=== PATIENT | female | born 1990 | race Caucasian/White ===

== ENCOUNTER 2025-06-24 08:16 | Inpatient (IN) ==
[2025-06-24] MEDS ORDERED: LIDOCAINE 1% LOCAL 20 ML VIAL INFIL PRN (08:21)
--- NOTE | 2025-06-24 08:52 | History & Physical Report ---
Date of Service June 24, 2025 Assessment & Plan (1) Insulin controlled gestational diabetes mellitus (GDM) during : (2) with 39 completed weeks gestation: Plan admit. pit iol. arom when indicated. epidural on demand, check sugars hourly with goal of 80-120, fetus category one, anticipate . 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 Notes good fm. no lof/vb/contractions. and Delivery Plans new fob - Fob's brother Transposition of Great Vessels - echo -24 wks-[facility]-03/30/25- WNL JBS Cervical polyp GDM on insulin *Wkly NSTs @32wks and Twice wkly @36wks *Growth US Q 4wks @ 24wks *Deliver by [facility]C 06/24/25 LGA --> Induction scheduled for 06/24- call at 6am (per L&D) 06/10 us efw 92%, AC >98% OB Labs: Blood Type B Positive 11/25/24 Antibody Screen NEGATIVE 11/25/24 Hgb 12.3 g/dl (12.0-16.0) 04/15/25 Hct 36.4 % (37.0-47.0) L 04/15/25 MCV 87.5 fL (80.0-100.0) 11/25/24 Plt Count 331 K/uL (130-400) 11/25/24 Rubella IgG Antibody Immune (Immune) 11/25/24 Treponema pallidum Ab Negative (Negative) 04/15/25 Hep Bs Antigen Negative (Negative) 11/25/24 Hepatitis C Antibody Negative (Negative) 11/25/24 HIV 1&2 Ab/P24 Ag 4thGn Negative (Negative) 11/25/24 Glucose 1 Hr 50 gm 200 mg/dl (70-130) H 01/22/25 OB Optional Labs: Chlamydia trachomatis RNA Not Detected (NotDetected) 11/25/24 Neisseria gonorrhoeae RNA Not Detected (NotDetected) 11/25/24 Thyroid Stimulating Hormone (TSH) 2.175 uIu/ml (0.300-4.500) 08/14/23 Labs Reviewed: declines cfdna, cf/sma - sln gbs neg Allergies Allergy/AdvReac Type Severity Reaction Status Date / Time Sulfa (Sulfonamide Allergy Severe eye drops Verified 06/23/25 09:23 Antibiotics) -> eye redness, painful, irritation Home Medications Medication Instructions Recorded Confirmed Type fluoxetine 40 mg capsule 40 mg PO DAILY #90 caps 05/27/24 06/23/25 Rx 21-iron fu-folic acid PO 11/23/24 06/23/25 History [ Complete] ofloxacin 0.3 % eye drops See Rx Instructions ophthalmic 01/08/25 06/23/25 Rx (eye) .COMPLEX #10 mL acetone (urine) test (Ketone Urine #50 ea 02/03/25 06/23/25 Rx Test strips) blood sugar diagnostic (OneTouch #150 ea 02/03/25 06/23/25 Rx Verio test strips) blood-glucose meter (OneTouch #1 ea 02/03/25 06/23/25 Rx Verio Flex Meter) lancets 33 gauge (OneTouch Delica #150 ea 02/03/25 06/23/25 Rx Plus Lancet) insulin NPH isoph U-100 human 100 10 unit (0.1 mL) subcut .at 03/19/25 06/23/25 Rx unit/mL (3 mL) subcutaneous pen bedtime #15 mL (Novolin N FlexPen) pen needle, diabetic 32 gauge x #100 ea 03/19/25 06/23/25 Rx 5/" Patient History Medical History Cervical polyp History of chicken pox ADD (attention deficit disorder) Chronic sinusitis Allergic rhinitis Anxiety Surgical History H/O sinus surgery x2 Family History Grandmother (Maternal) Breast cancer Other No family history of adverse response to anesthesia Denies family history of Ovarian cancer Colorectal cancer Social History Smoking Status: Never smoker Second Hand Exposure: No; Do You Dip or Chew Tobacco: No; Hx Alcohol Use: No Hx Substance Use: No Preferred Language: Belarusian Communication Ability: Effective Securities Underwriter Required: No Beliefs That Will Affect Care: None marital status: marital status details: Jeovany Barnard [phone] Current Living Situation: Spouse and Family Current Living Situation Comment: lives with spouse, daughter, dogs, cats- spouse changing litter current occupational status: employed 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 Date GA wks Lbr Lgth wt Sex Type del Anes Place Del Prov ? 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
[2025-06-24 09:34] LABS: Hematocrit (blood only) 37.3 % (37.0-47.0); Hemoglobin 12.7 g/dl (12.0-16.0); Mean Corpuscular Hemoglobin 30.5 pg (25.0-34.0); Mean Corpuscular Volume 89.7 fL (80.0-100.0); Platelet Count 212 K/uL (130-400); RDW Standard Deviation 44.0 fL (36.4-46.3); Red Blood Count 4.16 M/uL (4.20-5.40); White Blood Count 11.83 K/ul (4.8-10.8)
[2025-06-24] MEDS: LACTATED RINGER'S 1,000 ML IV PRN (09:51)
[2025-06-24] MEDS: OXYTOCIN 30 UNITS/NSS 30 UNITS/500 ML BAG IV PRN ×2 (09:52→17:38)
[2025-06-24] MEDS ORDERED: SODIUM CHLORIDE 0.9% 100 ML IV PRN (11:25)
--- NOTE | 2025-06-24 13:07 | Labor Progress Brief Note ---
Date of Service June 24, 2025 Subjective noting contractions. not ready for epidural Assessment & Plan (1) with 39 completed weeks gestation: (2) Insulin controlled gestational diabetes mellitus (GDM) during : Plan continue current management. fetus category one. epidural on demand. bs good Admission and Anticipated Discharge Date Admission Date: June 24, 2025 Physical Exam Physical Exam: cx--3.5/75/-2 toco--q2-3 ,min efm--130s with mod variability, accels ot 170s, no decels arom--clear Results & Data Vital Signs (Past 12 Hours) Vital Signs Temp Pulse Resp BP 06/24/25 13:01 80 06/24/25 13:01 117/61 06/24/25 12:06 79 06/24/25 12:06 109/61 06/24/25 10:37 77 06/24/25 10:37 36.5 C 18 112/64 06/24/25 08:35 36.7 C 18 06/24/25 08:33 36.7 C 109 H 18 123/72 Coding Level of Care Code None Diagnoses with 39 completed weeks gestation Z3A.39 Insulin controlled gestational diabetes mellitus (GDM) during O24.414
[2025-06-24] MEDS ORDERED: NALOXONE HCL 0.4 MG/1 ML VIAL/CARP IV PRN (14:37)
[2025-06-24] MEDS ORDERED: NALBUPHINE HCL INJ 10 MG/ML AMP IV PRN (14:37)
[2025-06-24] MEDS ORDERED: ONDANSETRON INJ 2 MG/ML 2 ML VIAL IV PRN (14:37)
[2025-06-24] MEDS ORDERED: BUPIVACAINE 0.25% PF 30 ML VIAL EPI PRN (14:37)
[2025-06-24] MEDS ORDERED: fentANYL 2 MCG/ML BUPIVacaine 0.125%-NSS 100ML BAG EPI PRN (14:37)
[2025-06-24] MEDS ORDERED: SODIUM CHLORIDE 0.9% PF INJ 10 ML VIAL EPI PRN (14:37)
[2025-06-24] MEDS ORDERED: LIDOCAINE 2% MPF LOCAL 5 ML VIAL EPI PRN (14:37)
[2025-06-24] MEDS ORDERED: ATROPINE SULFATE 0.1 MG/ML 10ML SYR IV PRN (14:37)
[2025-06-24] MEDS ORDERED: ROPIVACAINE 0.5% PF 5 MG/ML 20 ML VIAL EPI PRN (14:37)
[2025-06-24] MEDS ORDERED: NALOXONE HCL 1 MG in SODIUM CHLORIDE 0.9% 1,000 ML IV PRN (14:37)
[2025-06-24] MEDS ORDERED: LIDOCAINE 2%/EPINEPHRINE 1:200,000 20 ML PF EPI STA (14:37)
[2025-06-24] MEDS ORDERED: diphenhydrAMINE 50 MG/ML VIAL IV PRN (14:37)
[2025-06-24] MEDS ORDERED: BUPIVACAINE 0.25% PF 30 ML VIAL EPI STA (14:37)
[2025-06-24] MEDS ORDERED: SODIUM CHLORIDE 0.9% PF INJ 10 ML VIAL EPI STA (14:37)
[2025-06-24] MEDS ORDERED: PROMETHAZINE 6.25 MG/50.25 ML BAG IV PRN (14:37)
--- NOTE | 2025-06-24 14:38 | Anesthesiology Consultation ---
Date of Service June 24, 2025 Assessment & Plan Chart Review Chart Review: Patient NOT seen in Pre Admission Testing and Acceptable Risk for Labor Epidural Consults Requested none ASA ASA2 Proposed Anesthesia Anesthesia Type: Labor Epidural Risk / Benefits Reviewed With: PT / POA / Parent / Guardian, Accepts Plan and Informed Consent Obtained History Height/Weight Height: 5 ft 4 in Weight: 107.501 kg Allergies Allergy/AdvReac Type Severity Reaction Status Date / Time Sulfa (Sulfonamide Allergy Severe eye drops Verified 06/23/25 09:23 Antibiotics) -> eye redness, painful, irritation Medications Home Medications Medication Instructions Recorded Confirmed Last Taken fluoxetine 40 mg capsule 40 mg PO DAILY #90 caps 05/27/24 06/24/25 06/23/25 21-iron fu-folic acid 1 tab PO 11/23/24 06/23/25 06/23/25 [ Complete] ofloxacin 0.3 % eye drops See Rx Instructions ophthalmic 01/08/25 06/23/25 Unknown (eye) .COMPLEX #10 mL acetone (urine) test (Ketone Urine #50 ea 02/03/25 06/23/25 Unknown Test strips) blood sugar diagnostic (OneTouch #150 ea 02/03/25 06/23/25 Unknown Verio test strips) blood-glucose meter (OneTouch #1 ea 02/03/25 06/23/25 Unknown Verio Flex Meter) lancets 33 gauge (OneTouch Delica #150 ea 02/03/25 06/23/25 Unknown Plus Lancet) insulin NPH isoph U-100 human 100 10 unit (0.1 mL) subcut .at 03/19/25 06/24/25 06/23/25 unit/mL (3 mL) subcutaneous pen bedtime #15 mL (Novolin N FlexPen) pen needle, diabetic 32 gauge x #100 ea 03/19/25 06/23/25 Unknown " Active Medications Generic Name Dose Route Start Last Admin Trade Name Freq PRN Reason Stop Dose Admin Oxytocin 30 units in 500 mls @ 12 mls/hr 06/24/25 08:21 06/24/25 13:00 Pitocin 30 Units/Nss IV 06/26/25 08:20 0.72 units/hr .Q24H PRN 12 mls/hr Labor Induction/Augmentation Titration Protocol 0.72 UNITS/HR Lactated Ringer's 1,000 mls @ 125 mls/hr 06/24/25 08:21 06/24/25 14:17 Lr IV 06/26/25 08:20 999 mls/hr .Q8H PRN Administration L&D Protocol Protocol Past Medical History Medical History Cervical polyp History of chicken pox ADD (attention deficit disorder) Chronic sinusitis Allergic rhinitis Anxiety Exercise / Class Metabolic Activity II 4-5 Yardwork/Stairs/Walk up hill Past Family History Family History Grandmother (Maternal) Breast cancer Other No family history of adverse response to anesthesia Denies family history of Ovarian cancer Colorectal cancer Past Surgical History Surgical History H/O sinus surgery x2 Past Anesthesia History No Hx of Anesthesia Complications and No Family Hx of Anesthesia Complications History of PONV No Hx of PONV and No Hx of Motion Sickness Social History Smoking Status: Never smoker Do You Dip or Chew Tobacco: No Hx Alcohol Use: No Hx Substance Use: No substance use type: does not use Physical Exam Vital Signs Last Vital Signs Temp 36.8 C 06/24/25 13:05 Pulse 92 H 06/24/25 14:32 Resp 18 06/24/25 13:05 BP 123/77 06/24/25 14:12 Pulse Ox 92 06/24/25 14:32 ENMT Mouth: no dentition abnormality Thyromental Distance: > or= 3.5 Finger Breadths Mallampati Class: II Neck normal visual inspection Respiratory normal respiratory effort Auscultation: lungs clear to auscultation bilaterally Cardiovascular Rate/Rhythm: regular rate and regular rhythm Psychiatric Orientation: alert Testing Laboratory Results 06/24/25 09:05 Blood Type B Positive 06/24/25 09:05 Antibody Screen NEGATIVE 06/24/25 09:05 06/24/25 06/24/25 06/24/25 13:42 12:44 11:41 POC Glucose 74 76 76 06/24/25 06/24/25 10:40 09:10 POC Glucose 79 86
[2025-06-24] MEDS: fentANYL 2 MCG/ML BUPIVacaine 0.125%-NSS 100ML BAG ONE (14:54)
[2025-06-24] MEDS: LIDOCAINE 2%/EPINEPHRINE 1:200,000 20 ML PF ONE (14:57)
[2025-06-24] MEDS: SODIUM CHLORIDE 0.9% PF INJ 10 ML VIAL ONE (14:57)
[2025-06-24] MEDS: BUPIVACAINE 0.25% PF 30 ML VIAL ONE (14:57)
--- NOTE | 2025-06-24 17:15 | Delivery Summary ---
Vaginal Delivery Summary Date of Service June 24, 2025 Vaginal Delivery Summary and 2nd Degree LAC Pre-operative Diagnosis: at 39 weeks insulin gdm lga Post-operative Diagnosis: same Procedure: pitocin iol arom epidural second degree laceration and repair QBL: 214cc Anesthesia: epidural Procedure: The patient presented to labor and delivery for iol. Pitocin iol, arom for clear fluid, epidural placed. Progressed to c/c/+2. The patient pushed for about 1.5 hours to deliver a viable female in dop position. The nose and mouth were bulb suctioned on the perineum and the rest of the was then delivered without difficulty after a nuchal cord reduced. The baby was vigorous. The nose and mouth were again bulb suctioned and the was placed in the maternal abdomen for drying and attention. Cord was clamped and cut at one minute of life. Cord blood and segment obtained. Placenta delivered spontaneous, intact with a three vessel cord. Cervix/sulci/rectum were intact. A second degree perineal laceration was repaired in the normal standard fashion. Hemostasis obtained with dilute pitocin and fundal massage. Apgars were 7/9. Mother and baby doing well at the end of the delivery. [facility] Vaginal Delivery Charge Delivery Type Details: and 2nd Degree LAC
[2025-06-24] MEDS ORDERED: ACETAMINOPHEN 325 MG TAB PO PRN (18:11)
[2025-06-24] MEDS ORDERED: OXYTOCIN 30 UNITS/NSS 30 UNITS/500 ML BAG IV PRN (18:11)
[2025-06-24] MEDS ORDERED: DIPHTHER/TETAN/PERTUS Vaccine (Tdap, Adol/Adult) 0.5mL IM ONE (18:11)
[2025-06-24] MEDS ORDERED: HYDROCORTISONE ACETATE 25 MG SUPP PR PRN (18:11)
--- NOTE | 2025-06-24 19:43 | Anesthesia Procedure Note ---
Date of Service June 24, 2025 Anesthesia Post Epidural Note Vital Signs Vital Signs: Temp Pulse Resp BP Pulse Ox 36.7 C 86 18 142/66 H 79 L 06/24/25 17:05 06/24/25 19:08 06/24/25 17:05 06/24/25 19:08 06/24/25 17:38 Pain Intensity Lower Abdomen: Pain Intensity: 4 Notes Mental Status: alert / awake / arousable Nausea / Vomiting: adequately controlled Pain: adequately controlled Airway Patency, RR, SpO2: stable & adequate BP & HR: stable & adequate Hydration State: stable & adequate Neuraxial Anesthesia: was administered and sensory block is resolving Anesthetic Complications: no major complications apparent and Pt Satisfied with anesthetic care Epidural: Removed without complications and With tip intact
[2025-06-24] MEDS: IBUPROFEN 600 MG TAB PO PRN (20:39)
[2025-06-25] MEDS: BENZOCAINE 20% SPRY 85 APPLN/85 GM CAN EXT PRN (04:25)
[2025-06-25 05:52] VITALS: O2SAT 97
--- NOTE | 2025-06-25 06:38 | Obstetrical Progress Note ---
Date of Service June 25, 2025 Assessment & Plan (1) care and examination: Plan: 35yo post- day 1 s/p Fells well today Continue post- care Encourage ambulation and Pain controlled with Ibuprofen Vital Signs stable, will follow AM labs Discharge home today, follow up with OB provider in 6 weeks. Admission and Anticipated Discharge Date Admission Date: June 24, 2025 Supervising Physician Co-Signing Physician Notes Resident Physician Supervision Note: I interviewed and examined the patient. Discussed with Dr. Cedillo and agree with findings and plan as documented in the note. Any exceptions or clarifications are listed here: Doing well. Meeting goals. Would like to be d/c at 24 hours. Instructions reviewed. Documented By: Eileen Baker MD, FACOG Subjective 35yo post- day 1 s/p Ambulation: Ambulating normally Voiding: No voiding problems Passing Gas:: Yes Diet Tolerance:: regular diet Lochia:: Small Feeding Type:: Current Pain Level: 2/10 controlled with Ibuprofen Resting comfortably this AM in NAD. Denies STATON, CP, SOB, N/V/D, LE pain/swelling. Physical Exam Physical Exam: General: patient resting comfortably, NAD, non-toxic in appearance, answers questions appropriately Skin: warm, dry, intact Heart: S1/S2 heard, regular, no m/r/g Lungs: equal air entry bilaterally, no rales/rhonchi/wheezes Abd: Normoactive BS, soft, NT/ND, uterine fundus firm below umbilicus Ext: warm, no clubbing/cyanosis or edema, Marivel's neg Neuro: nonfocal, patient AAOx4, speech intact, no facial droop, moving all extremities on command Results & Data Vital Signs (Past 12 Hours) Vital Signs Temp Pulse Pulse Resp BP BP Pulse Ox 06/25/25 04:15 36.9 C 83 18 110/72 97 06/25/25 00:00 36.8 C 94 H 16 114/76 96 06/24/25 20:30 36.8 C 114 H 16 122/73 96 06/24/25 19:08 86 06/24/25 19:08 142/66 H 06/24/25 19:05 36.8 C 18 06/24/25 18:52 91 H 06/24/25 18:52 141/65 H 06/24/25 18:37 76 06/24/25 18:37 126/61 O2 Del Method 06/25/25 04:15 Room Air 06/25/25 00:00 Room Air 06/24/25 20:30 Room Air 06/24/25 19:08 06/24/25 19:08 06/24/25 19:05 06/24/25 18:52 06/24/25 18:52 06/24/25 18:37 06/24/25 18:37 Resident Activity Tracking Resident Involvement: Resident Care Provided Care Provided: OB Delivery
[2025-06-25 07:18] LABS: Hematocrit (blood only) 32.7 % (37.0-47.0); Hemoglobin 11.3 g/dl (12.0-16.0)
[2025-06-25] MEDS: DOCUSATE SODIUM 100 MG CAP PO SCH (07:30)
[2025-06-25] MEDS: PRENATAL VITAMIN 1 TAB PO SCH (07:30)
[2025-06-25 16:41] VITALS: BP 130/79; PULSE 97; RESP 18; TEMP 98.1
== END 2025-06-25 18:00 | disposition home or self-care (01) | DRG 807 ==
LOC: 4S1 08:16 → 4E2 20:28

== ENCOUNTER 2025-07-01 16:47 | Inpatient (IN) ==
[2025-07-01] MEDS: OPTIRAY 320 100ml IV ONE (17:07)
--- NOTE | 2025-07-01 17:36 | CT Scan Report ---
Clinical History: Possible stroke. Technique: Axial computed tomography images were obtained of the brain from the vertex to the skull base without intravenous contrast. Findings: There is no sign of intracranial hemorrhage. There is normal lópez-white matter differentiation with no sign of acute or old infarction. No midline shift or other form of herniation is identified. There is no hydrocephalus. No obvious mass lesion is seen on this noncontrast examination. The visualized portions of the orbits and paranasal sinuses appear unremarkable. The mastoid air cells appear clear Impression: Unremarkable noncontrast CT of the brain Electronically signed by Silvio Saab 07-01-2025 5:35 PM
--- NOTE | 2025-07-01 17:39 | Emergency Department Note ---
Impression & Plan Facial droop, Right facial numbness, Leukocytosis, Stroke-like symptoms ED Provider Note NAME: SKYLER BARNARD AGE: 35 SEX: F : 1990 ARRIVES VIA: Walk-In INFORMANT: [Patient] ED PROVIDER(S): [Jarred Cox MD] Patient first seen by me at 1700 CHIEF COMPLAINT: TIA symptoms HISTORY OF PRESENT ILLNESS: The patient is a 35-year-old female who states that at around 1330, around 4 hours ago, she thought her right tongue was a bit numb. 2 hours ago, the right face seemed a bit numb and she noticed that her smile was incomplete on the right. She presents for evaluation. There is no headache. There has been no fever or tick bite. She has no arm or leg weakness. She has not noticed any difficulty with her gait. No recent cough cold or congestion. Of note, she is about 1 month. Of note, she is not on blood thinning agents. PMHx/PSHx/Social Hx: See Below PHYSICAL EXAM: GENERAL: Patient is in no acute distress. HEENT: No acute trauma, normocephalic atraumatic, mucous membranes moist, no nasal congestion. NECK: No stridor, no adenopathy, no meningismus, trachea is midline. LUNGS: Clear to auscultation bilaterally, no wheeze, no rhonchi, breath sounds equal. HEART: Without murmurs gallops or rubs, regular rate and rhythm. ABDOMEN: Soft, nontender, no peritonitis. EXTREMITIES: No cyanosis, full range of motion of all the joints without pain or difficulty. NEUROLOGIC: Oriented x 3. The patient does have a subtle right facial droop. She has some difficulty with closing her right eye although, she can raise her eyebrows on both sides. There is no extremity drift or cerebellar dysfunction. No speech slur. SKIN: No jaundice, no diaphoresis. DIFFERENTIAL DIAGNOSIS: Stroke, TIA, Arana's palsy, electrolyte imbalance, among others. EMERGENCY DEPARTMENT PROCEDURES: MEDICAL DECISION MAKING: There is a slight leukocytosis, this could be consistent with infection or the stress of today's presentation. There was a normal hemoglobin and platelet count. No coagulopathy. No renal failure or significant electrolyte abnormality. There were some very subtle liver enzyme elevations, the bilirubin was normal. testing was negative. ECG showed a sinus tachycardia, no obvious ST elevation. Cardiac enzyme testing x 1 was not consistent with acute cardiac injury. Lyme disease testing was negative. Anaplasmosis and Babesia smears were negative. Brain CT showed no acute bleed or mass effect. CTA of the head and neck were performed, there was no stenosis or clot. On exam, the patient did have a subtle right facial droop. She seemed to have some difficulty with closing her right eye. A stroke alert was called. The patient was seen by the [facility] telestroke team. The patient does not meet criteria for TNK. She is out of the window and, her deficits are quite subtle. Neurology felt her presentation was more consistent with an incomplete Arana's palsy. The patient was given oral aspirin. The patient is to be hospitalized for further stroke workup. She will require an MRI, possibly a cardiac echo. I spoke with the patient and her family. I did speak with case management, the on-call hospitalist was consulted. Prior/Outside records/notes reviewed: None ECG per my interpretation: Indication was possible stroke. The ECG shows a sinus tachycardia with a rate of 105. There is no ST elevation, no PVCs. There is poor R wave progression. QTc is 457. Continuous Cardiac Monitoring per my interpretation: An order was placed for continuous cardiac monitoring. The monitor shows a rate of 101 with sinus tachycardia. Imaging/x-ray results per my interpretation: Chronic Medical/Social conditions affecting care: 1 week. Care/Management discussed with: Stroke neurologist from [facility]-Dr. Rowley Level of care consideration(s): After review of the information above and other included data: --I believe the patient requires escalation of care to admission Critical Care Note: I have personally spent 46 minutes of critical care time in the direct management of this patient. This includes bedside care, interpretation of diagnostic studies, and testing, discussion with consultants, patient, and family members, and other required patient management activities. This 46 minutes is in excess of all separately billable procedures. DISPOSITION: Admission Past Med/Surg History Problem List Stroke-like symptoms (Acute) Leukocytosis (Acute) Right facial numbness (Acute) Facial droop (Acute) care and examination with 39 completed weeks gestation Insulin controlled gestational diabetes mellitus (GDM) during Gestational diabetes Encounter for supervision of normal in multigravida Encounter for anatomic survey Early stage of Medical History Cervical polyp History of chicken pox ADD (attention deficit disorder) Chronic sinusitis Allergic rhinitis Anxiety Surgical History H/O sinus surgery x2 Family History Grandmother (Maternal) Breast cancer Other No family history of adverse response to anesthesia Denies family history of Ovarian cancer Colorectal cancer Social History Smoking Status: Never smoker Second Hand Exposure: No; Do You Dip or Chew Tobacco: No; Hx Alcohol Use: Yes Alcohol type: beer Hx Substance Use: No Preferred Language: Bengali Communication Ability: Effective Associate Scientist Required: No Beliefs That Will Affect Care: None marital status: marital status details: Jeovany Barnard [phone] Current Living Situation: Spouse and Family Current Living Situation Comment: Living with and 8 y/o daughter current occupational status: employed 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 [employer] Other Information That Helps Us Care for You: No Feels Safe at Home: Yes Safety Concerns: Feels Safe At This Time Diet: regular caffeine: Yes Dental Care, Regularly: Yes Physical Activity Frequency: Does not Exercise Seatbelt Use: always Sunscreen Use: Yes Assistive Devices: None Allergies Allergies Allergy/AdvReac Type Severity Reaction Status Date / Time Sulfa (Sulfonamide Allergy Severe eye drops Verified 06/23/25 09:23 Antibiotics) -> eye redness, painful, irritation Home Meds Home Medications Medication Instructions Recorded Confirmed Complete 1 tab PO DAILY 07/01/25 07/01/25 Previous Rx's Medication Instructions Recorded fluoxetine 40 mg capsule 40 mg PO DAILY #90 caps 05/27/24 Results & Data (ED) Vital Signs Vital Signs - 24 hr 07/01/25 16:49 07/01/25 17:29 07/01/25 17:36 Temperature 36.8 C Temperature Source Temporal Artery Scan Pulse Rate 96 H 101 H 97 H Pulse Rate from SpO2 Sensor 98 H Respiratory Rate 16 18 Respiratory Effort / Characteristics Non-Labored Spontaneous Respiratory Depth Normal Respiratory Pattern Regular Blood Pressure 151/102 H 137/84 Blood Pressure Mean 118 101 Pulse Oximetry 95 95 Oxygen Delivery Method Room Air Room Air Sepsis Recent Fever Within 48 Hours No Sepsis New/Unexplained Change in Mental Status No Sepsis Action Taken by Nursing No Action Required 07/01/25 17:45 07/01/25 17:45 07/01/25 17:45 Temperature Temperature Source Pulse Rate 94 H Pulse Rate from SpO2 Sensor Respiratory Rate 25 H Respiratory Effort / Characteristics Respiratory Depth Respiratory Pattern Blood Pressure 126/84 126/84 Blood Pressure Mean 93 93 Pulse Oximetry Oxygen Delivery Method Sepsis Recent Fever Within 48 Hours Sepsis New/Unexplained Change in Mental Status Sepsis Action Taken by Nursing 07/01/25 18:00 07/01/25 18:01 07/01/25 18:01 Temperature Temperature Source Pulse Rate 89 Pulse Rate from SpO2 Sensor Respiratory Rate 16 Respiratory Effort / Characteristics Respiratory Depth Respiratory Pattern Blood Pressure 125/77 125/77 Blood Pressure Mean 104 104 Pulse Oximetry Oxygen Delivery Method Sepsis Recent Fever Within 48 Hours Sepsis New/Unexplained Change in Mental Status Sepsis Action Taken by Nursing 07/01/25 18:01 07/01/25 18:01 07/01/25 18:18 Temperature Temperature Source Pulse Rate 95 H Pulse Rate from SpO2 Sensor Respiratory Rate 24 Respiratory Effort / Characteristics Respiratory Depth Respiratory Pattern Blood Pressure 125/77 125/77 Blood Pressure Mean 104 104 Pulse Oximetry Oxygen Delivery Method Sepsis Recent Fever Within 48 Hours Sepsis New/Unexplained Change in Mental Status Sepsis Action Taken by Nursing 07/01/25 18:21 07/01/25 18:21 07/01/25 18:21 Temperature Temperature Source Pulse Rate Pulse Rate from SpO2 Sensor Respiratory Rate Respiratory Effort / Characteristics Respiratory Depth Respiratory Pattern Blood Pressure 112/90 112/90 112/90 Blood Pressure Mean 103 103 103 Pulse Oximetry Oxygen Delivery Method Sepsis Recent Fever Within 48 Hours Sepsis New/Unexplained Change in Mental Status Sepsis Action Taken by Nursing 07/01/25 18:24 07/01/25 18:30 07/01/25 18:36 Temperature Temperature Source Pulse Rate 99 H 93 H Pulse Rate from SpO2 Sensor 99 H 94 H Respiratory Rate 27 H 18 Respiratory Effort / Characteristics Respiratory Depth Respiratory Pattern Blood Pressure 138/99 Blood Pressure Mean 115 Pulse Oximetry 95 94 Oxygen Delivery Method Sepsis Recent Fever Within 48 Hours Sepsis New/Unexplained Change in Mental Status Sepsis Action Taken by Nursing 07/01/25 18:45 07/01/25 19:00 07/01/25 19:00 Temperature Temperature Source Pulse Rate 92 H 101 H Pulse Rate from SpO2 Sensor 100 H Respiratory Rate 23 20 Respiratory Effort / Characteristics Respiratory Depth Respiratory Pattern Blood Pressure 122/93 Blood Pressure Mean 104 Pulse Oximetry 95 Oxygen Delivery Method Sepsis Recent Fever Within 48 Hours Sepsis New/Unexplained Change in Mental Status Sepsis Action Taken by Nursing 07/01/25 19:00 07/01/25 19:15 07/01/25 19:24 Temperature Temperature Source Pulse Rate 94 H 110 H Pulse Rate from SpO2 Sensor Respiratory Rate 16 21 Respiratory Effort / Characteristics Respiratory Depth Respiratory Pattern Blood Pressure 122/93 Blood Pressure Mean 104 Pulse Oximetry Oxygen Delivery Method Sepsis Recent Fever Within 48 Hours Sepsis New/Unexplained Change in Mental Status Sepsis Action Taken by Nursing 07/01/25 19:30 07/01/25 19:33 Temperature Temperature Source Pulse Rate 98 H Pulse Rate from SpO2 Sensor 94 H Respiratory Rate 22 Respiratory Effort / Characteristics Respiratory Depth Respiratory Pattern Blood Pressure 142/90 H Blood Pressure Mean 100 Pulse Oximetry 95 Oxygen Delivery Method Sepsis Recent Fever Within 48 Hours Sepsis New/Unexplained Change in Mental Status Sepsis Action Taken by Retirement Medications Current Medication List: was personally reviewed by me Laboratory Data Attestation: I reviewed the patient's lab results. 07/01/25 17:25 07/01/25 17:25 Lab Results 07/01/25 07/01/25 Range/Units 17:25 17:28 WBC 12.28 H (4.8-10.8) K/ul RBC 4.36 (4.20-5.40) M/uL Hgb 13.2 (12.0-16.0) g/dl Hct 39.3 (37.0-47.0) % MCV 90.1 (80.0-100.0) fL MCH 30.3 (25.0-34.0) pg MCHC 33.6 (32.0-36.0) g/dL RDW Std Deviation 43.5 (36.4-46.3) fL RDW Coeff of Hannah 13.2 (11.5-14.5) % Plt Count 344 (130-400) K/uL MPV 10.0 (9.4-12.4) fL Immature Gran % (Auto) 0.9 % Neut % (Auto) 67.7 % Lymph % (Auto) 22.1 % [place] % (Auto) 5.6 % Eos % (Auto) 3.2 % Baso % (Auto) 0.5 % Neut # (Auto) 8.31 H (1.40-6.50) K/uL Lymph # (Auto) 2.72 (1.20-3.40) K/uL [place] # (Auto) 0.69 H (0.11-0.59) K/uL Eos # (Auto) 0.39 (0.00-0.50) K/uL Baso # (Auto) 0.06 (0.00-0.20) K/uL Immature Gran # (Auto) 0.11 (0.01-0.20) K/uL PT 10.3 (9.0-12.0) Seconds INR 1.0 (0.9-1.1) APTT 26 (21-31) Seconds PTT Ratio 1.0 Sodium 134 L (136-145) mmol/L Potassium 3.9 (3.5-5.1) mmol/L Chloride 103 (98-107) mmol/L Carbon Dioxide 21 (21-32) mmol/L Anion Gap 10 (3-11) BUN 23 (6-23) mg/dl Creatinine 0.89 (0.6-1.2) mg/dl Est Cr Clr Drug Dosing 97.0 ml/min eGFR 87.19 BUN/Creatinine Ratio 25.8 H (10-20) Glucose 93 (70-99(Fasting)) mg/dl POC Glucose 94 (70-99) mg/dl Calcium 8.9 (8.6-10.3) mg/dl Magnesium 2.1 (1.7-2.4) mg/dl Total Bilirubin 0.3 (0.2-1.0) mg/dl AST 33 (13-39) U/L ALT 74 H (7-52) U/L Alkaline Phosphatase 106 H (34-104) U/L Troponin I High Sens 3.8 (0-14) pg/ml Total Protein 6.4 (6.0-8.3) gm/dl Albumin 3.3 L (3.4-5.0) gm/dl Globulin 3.1 (2.5-4.0) gm/dl Albumin/Globulin Ratio 1.1 (0.9-2) HCG, Qual Negative (Negative) Anaplasma Smear See Comment Babesia Smear See Comment Lyme Disease Screen Negative (Negative) Administered Medications Discontinued Medications Aspirin (Aspirin Chew 324 Mg) 324 mg PO NOW STA Stop: 07/01/25 18:07 Last Admin: 07/01/25 18:20 Dose: 324 mg Documented By: LETTY Atorvastatin Calcium (Atorvastatin 40 Mg Tab) 40 mg PO NOW STA Stop: 07/01/25 19:41 Last Admin: 07/01/25 21:22 Dose: 40 mg Documented By: [email or web address] Ioversol (Optiray 320 100ml) 119 ml IV ONCE ONE Stop: 07/01/25 17:08 Last Admin: 07/01/25 17:07 Dose: 119 ml Documented By: KIM Imaging Data Radiologist's Impression: Head CT 07/01/25 17:02 Clinical History: Possible stroke. Technique: Axial computed tomography images were obtained of the brain from the vertex to the skull base without intravenous contrast. Findings: There is no sign of intracranial hemorrhage. There is normal lópez-white matter differentiation with no sign of acute or old infarction. No midline shift or other form of herniation is identified. There is no hydrocephalus. No obvious mass lesion is seen on this noncontrast examination. The visualized portions of the orbits and paranasal sinuses appear unremarkable. The mastoid air cells appear clear Impression: Unremarkable noncontrast CT of the brain Electronically signed by Silvio Saab 07-01-2025 5:35 PM Head CTA 07/01/25 17:02 Clinical history: Possible stroke Technique: Axial computed tomography images were obtained of the brain after the administration of intravenous contrast according to the CT angiogram protocol Findings: No definite stenosis or aneurysm is seen of the anterior, middle, or posterior cerebral artery circulations. The visualized vertebral arteries and the basilar artery appear unremarkable Impression: No definite stenosis or aneurysm of the intracranial arteries Electronically signed by Silvio Saab 07-01-2025 5:36 PM Neck CTA 07/01/25 17:02 Clinical history: Possible stroke Technique: Axial computed tomography images were obtained of the neck after the administration of intravenous contrast according to the CT angiogram protocol Findings: No stenosis is seen of the common carotid arteries bilaterally. The carotid bulbs appear normal. The remainder of the internal carotid arteries appear patent bilaterally. No stenosis of the external carotid arteries is seen The vertebral arteries are patent bilaterally with no significant stenosis seen. The visualized thoracic aorta appears unremarkable Impression: No definite stenosis of the neck arteries Electronically signed by Silvio Saab 07-01-2025 5:37 PM Brain MRI 07/01/25 19:43 Exam(s): MRI HEAD Without Contrast EXAM: MR Head Without Intravenous Contrast CLINICAL HISTORY: Reason for exam: stroke workup, right sided facial droop/numbness. STROKE: Facial Droop: RIGHT Stroke Notes: numbness of tongue at 1330 then rt sided facial droop at 1530 today, no hx stroke TECHNIQUE: Magnetic resonance images of the head/brain without intravenous contrast in multiple planes. COMPARISON: No relevant prior studies available. FINDINGS: Brain: There is a single 2 mm T2 hyperintense focus in the right frontal lobe deep white matter. The brain parenchymal signal is otherwise normal. No areas of diffusion restriction are seen to indicate acute stroke. No mass lesion or cerebral hemorrhage is identified. Ventricles: Unremarkable. No ventriculomegaly. Bones/joints: Unremarkable. No acute fracture. Sinuses: There is a 1.3 cm polyp or mucous retention cysts in the left maxillary sinus. The remaining sinuses are unremarkable. No acute sinusitis. Mastoid air cells: Unremarkable as visualized. No mastoid effusion. Orbits: Unremarkable as visualized. IMPRESSION: There is a single 2 mm T2 hyperintense focus in the right frontal lobe deep white matter which is nonspecific. The brain parenchymal signal is otherwise normal. No areas of diffusion restriction are seen to indicate acute stroke. No mass lesion or hemorrhage. Electronically signed by: Sam Cordova MD 07/01/25 23:07 PM Discharge Plan Visit Data Chief Complaint: TIA Symptoms Stated Complaint: RIGHT SIDE OF FACE DROOP AND TONGUE NUMBNESS ED Provider: Jarred Cox Discharge Problem: Facial droop, Right facial numbness, Leukocytosis, Stroke-like symptoms Patient Disposition: Admitted As Inpatient Condition: Serious Discharge Instructions Interventions: ED Discharge Assessment Last Done: 07/01/25 22:31 Discharge Problem: Leukocytosis Qualifiers: Leukocytosis type: unspecified Qualified Code(s): D72.829 - Elevated white blood cell count, unspecified
[2025-07-01 17:49] LABS: Hematocrit (blood only) 39.3 % (37.0-47.0); Hemoglobin 13.2 g/dl (12.0-16.0); Immature Granulocytes # (auto) 0.11 K/uL (0.01-0.20); Immature Granulocytes % (auto) 0.9 %; Mean Corpuscular Hemoglobin 30.3 pg (25.0-34.0); Mean Corpuscular Volume 90.1 fL (80.0-100.0); Platelet Count 344 K/uL (130-400); RDW Standard Deviation 43.5 fL (36.4-46.3); Red Blood Count 4.36 M/uL (4.20-5.40); White Blood Count 12.28 K/ul (4.8-10.8)
[2025-07-01 18:06] LABS: Alanine Aminotransferase 74.0 U/L (7-52); Albumin Globulin Ratio 1.1 (0.9-2); Albumin Level 3.3 gm/dl (3.4-5.0); Alkaline Phosphatase 106.0 U/L (34-104); Anion Gap 10.0 (3-11); Bilirubin,Total 0.3 mg/dl (0.2-1.0); Blood Urea Nitrogen 23.0 mg/dl (6-23); Calcium 8.9 mg/dl (8.6-10.3); Carbon Dioxide 21.0 mmol/L (21-32); Chloride 103.0 mmol/L (98-107); Creatinine Clr Calc Pharmacy 97.0 ml/min; Globulin 3.1 gm/dl (2.5-4.0); Glucose 93.0 mg/dl (70-99(Fasting)); Magnesium 2.1 mg/dl (1.7-2.4); Potassium 3.9 mmol/L (3.5-5.1); Sodium 134.0 mmol/L (136-145); Total Protein 6.4 gm/dl (6.0-8.3)
[2025-07-01 18:09] LABS: Pregnancy Test, Serum Negative (Negative)
[2025-07-01] MEDS: ASPIRIN CHEW 324 MG PO STA (18:20)
[2025-07-01 18:43] LABS: INR 1.0 (0.9-1.1); Partial Thromboplastin Time 26 Seconds (21-31); Prothrombin Time 10.3 Seconds (9.0-12.0)
--- NOTE | 2025-07-01 19:48 | History & Physical Report ---
Date of Service July 01, 2025 Assessment & Plan (1) Right facial numbness: (2) Facial droop: (3) Stroke-like symptoms: (4) Leukocytosis: Plan Patient is a 35-year-old female with past medical history of ADD, anxiety, gestational DM, recent delivery 06/24. Patient presented due to tongue numbness and right sided facial droop that began in the afternoon 07/01 and is unchanged. She is being admitted for stroke workup. 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 Head CT and CTAs negative for acute changes. Symptoms unchanged at time of admission. Loaded with aspirin 324 mg p.o. in ED, continue with baby aspirin daily Ordered atorvastatin 40 mg p.o., continue daily A1c and lipid panel with a.m. labs Brain MRI ordered Echocardiogram ordered Stroke without TNK order set - hypercoagulable panel ordered - tick panel sent #mild leukocytosisWBC 12.28, appears to be patient's baseline with recent /delivery. No infectious origin determined at time of admission. Trend CBC #Anxietycontinue fluoxetine VTE ppx: SCDs, low risk Dispo: med/telemetry, anticipate discharge home 07/03 Admission and Anticipated Discharge Date Admission Date: 07/01/25 History of Present Illness Chief Complaint: tia sx Primary Care Provider: Camila Leyva MD Patient is a 35-year-old female with past medical history of ADD, anxiety, gestational DM, recent delivery 06/24. Patient presented due to tongue numbness and right sided facial droop that began in the afternoon 07/01 and is unchanged. She is being admitted for stroke workup. Patient seen at bedside with her partner and baby present. She stated at 130 this afternoon she noticed that her tongue was numb and she felt like she swallowed a numbing agent. She then looked in the mirror at 330 and noticed that she had a right facial droop on the lower portion of her face which is most noticeable when she smiles. She has no changes to her right forehead. She also has noticed mild hearing loss of the right ear and her ear feels clogged similar to when she has a cold. She denies any nasal congestion, cough, chest pain, shortness of breath, slurred speech, difficulty finding words, extremity numbness or tingling, difficulty ambulating. She has had no changes in her symptoms since they began, or since loading dose of aspirin. She denies any nicotine or alcohol use. She denies any personal or family history of CVAs or clotting disorders. Her only home medication is fluoxetine which she states she has been on for a while and the dose has been unchanged. She was on insulin for gestational DM however was taken off of this to her delivery. She wishes to be full code. Allergies Allergy/AdvReac Type Severity Reaction Status Date / Time Sulfa (Sulfonamide Allergy Severe eye drops Verified 06/23/25 09:23 Antibiotics) -> eye redness, painful, irritation Home Medications Medication Instructions Recorded Confirmed Type fluoxetine 40 mg capsule 40 mg PO DAILY #90 caps 05/27/24 07/01/25 Rx Complete 1 tab PO DAILY 07/01/25 07/01/25 History methylprednisolone 4 mg tablets in 4 mg PO DAILY #21 ea 07/02/25 Rx a dose pack (Medrol (Wang)) Past Med/Surg History Problem List (Updated 07/02/25 @ 10:38 by Scar Salmon MD) Arana's palsy Stroke-like symptoms (Acute) Leukocytosis (Acute) Right facial numbness (Acute) Facial droop (Acute) care and examination with 39 completed weeks gestation Insulin controlled gestational diabetes mellitus (GDM) during Gestational diabetes Encounter for supervision of normal in multigravida Encounter for anatomic survey Early stage of Medical History Cervical polyp History of chicken pox ADD (attention deficit disorder) Chronic sinusitis Allergic rhinitis Anxiety Surgical History H/O sinus surgery x2 Family History Grandmother (Maternal) Breast cancer Other No family history of adverse response to anesthesia Denies family history of Ovarian cancer Colorectal cancer Social History Smoking Status: Never smoker Second Hand Exposure: No; Do You Dip or Chew Tobacco: No; Hx Alcohol Use: Yes Alcohol type: beer Hx Substance Use: No Preferred Language: Afghan Communication Ability: Effective Hotel Yardperson Required: No Beliefs That Will Affect Care: None marital status: marital status details: Jeovany Barnard (33) [phone] Current Living Situation: Spouse and Family Current Living Situation Comment: Living with and 8 y/o daughter current occupational status: employed 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 Non-toxic appearing. HEENT- EOMI, mucous membranes moist. Hearing grossly intact. Heart-normal S1 and S2. No murmurs, rubs or gallops. Lungs-clear bilaterally, no respiratory distress, no accessory muscle use. Abdomen-normal bowel sounds and soft. No ascites noted. Non-tender. Extremities- no clubbing, cyanosis, or edema. Rheumatologic-normal range of motion. Psychiatric-normal affect. Neurologic: not confused Speech / Cognition: normal speech Facial droop to right side with smiling, eye squinting, and cheek movements. No changes to forehead region. Results & Data Results & Data Vital Signs (Past 12 Hours) Vital Signs Temp Pulse Resp BP Pulse Ox O2 Del Method 07/01/25 18:21 112/90 07/01/25 18:21 112/90 07/01/25 18:21 112/90 07/01/25 18:18 95 H 24 07/01/25 18:01 125/77 07/01/25 18:01 125/77 07/01/25 18:01 125/77 07/01/25 18:01 125/77 07/01/25 18:00 89 16 07/01/25 17:45 126/84 07/01/25 17:45 126/84 07/01/25 17:45 94 H 25 H 07/01/25 17:36 97 H 18 137/84 95 Room Air 07/01/25 17:29 101 H 07/01/25 16:49 36.8 C 96 H 16 151/102 H 95 Room Air Laboratory Results Reviewed CBC, PT/INR, CMP, magnesium, troponin, hCG, Lyme screen Ordered tick panel Diagnostic Findings reviewed head CT, head CTA, neck CTA Ordered brain MRI Medications Administered EDaspirin 324 mg p.o. Admissionatorvastatin 40 mg p.o. ECG Additional Comments: sinus tachycardia, rate 105 QTc 457 Code Status & VTE Plan Code Status full code VTE Prophylaxis Plan VTE Prophylaxis will be ordered: Yes Supervising Physician Co-Signing Physician Notes Attending addendum: I have physically seen this patient, have supervised the CATERINA's activities, and agree with the H&P unless as otherwise noted. Assessment and Plan: The patient is a 35-year-old female with a past medical history including ADD, anxiety, gestational diabetes mellitus, and recent delivery 06/24. She presented to the emergency department due to acute onset of right sided tongue numbness and right-sided facial droop that began in the afternoon 07/01 acutely, and is unchanged since that time. [facility] for further evaluation and treatment for possible TIA versus stroke versus Arana's palsy. Right-sided facial droop and numbness/tongue numbness- CT scan head, CTA head and neck all negative Lyme antibodies negative, anaplasmosis and babesiosis smear is negative with antibodies pending. Brain MRI without contrast shows no acute stroke, they describe a 2 mm deep area to the right frontal lobe of unlikely significance. The patient will be admitted to telemetry for serial cardiac enzymes, serial EKG's, cardiac rhythm monitoring and a 2-D echocardiogram with Dopplers. Aspirin 324 mg, then 81 mg daily in the a.m. Stroke without thrombolytic order set Consult speech therapy/PT/OT Arterial hypercoagulable workup ordered Anxiety- Continue fluoxetine Remaining orders and notations as noted PG Care Time/CCT Total # of Minutes Spent Total Time Spent with Patient: Total time spent is greater than 50% in coordination of care (as documented) at patient's floor/unit and/or counseling patient: Coding Level of Care Code 97772 INT INP/OBS CARE 3/75MIN Diagnoses Right facial numbness R20.0 Facial droop R29.810 Stroke-like symptoms R29.90 Leukocytosis D72.829 Leukocytosis type: unspecified (4) Leukocytosis Leukocytosis type: unspecified Qualified Code(s): D72.829 - Elevated white blood cell count, unspecified
[2025-07-01] MEDS: ATORVASTATIN 40 MG TAB PO STA (21:22)
--- NOTE | 2025-07-01 23:08 | Magnetic Resonance Report ---
Exam(s): MRI HEAD Without Contrast EXAM: MR Head Without Intravenous Contrast CLINICAL HISTORY: Reason for exam: stroke workup, right sided facial droop/numbness. STROKE: Facial Droop: RIGHT Stroke Notes: numbness of tongue at 1330 then rt sided facial droop at 1530 today, no hx stroke TECHNIQUE: Magnetic resonance images of the head/brain without intravenous contrast in multiple planes. COMPARISON: No relevant prior studies available. FINDINGS: Brain: There is a single 2 mm T2 hyperintense focus in the right frontal lobe deep white matter. The brain parenchymal signal is otherwise normal. No areas of diffusion restriction are seen to indicate acute stroke. No mass lesion or cerebral hemorrhage is identified. Ventricles: Unremarkable. No ventriculomegaly. Bones/joints: Unremarkable. No acute fracture. Sinuses: There is a 1.3 cm polyp or mucous retention cysts in the left maxillary sinus. The remaining sinuses are unremarkable. No acute sinusitis. Mastoid air cells: Unremarkable as visualized. No mastoid effusion. Orbits: Unremarkable as visualized. IMPRESSION: There is a single 2 mm T2 hyperintense focus in the right frontal lobe deep white matter which is nonspecific. The brain parenchymal signal is otherwise normal. No areas of diffusion restriction are seen to indicate acute stroke. No mass lesion or hemorrhage. Electronically signed by: Sam Cordova MD 07/01/25 23:07 PM
[2025-07-01] MEDS ORDERED: MELATONIN 3 MG TAB PO PRN (23:12)
[2025-07-01] MEDS ORDERED: PHARMACIST DISCHARGE MED REC CONSULT PRN (23:12)
[2025-07-01] MEDS ORDERED: DOCUSATE SODIUM 100 MG CAP PO PRN (23:12)
[2025-07-01] MEDS ORDERED: ONDANSETRON INJ 2 MG/ML 2 ML VIAL IV PRN (23:12)
[2025-07-01] MEDS ORDERED: POLYETHYLENE (MIRALAX) 17 GM PACK PO PRN (23:12)
[2025-07-02 06:40] LABS: Hematocrit (blood only) 40.2 % (37.0-47.0); Hemoglobin 13.3 g/dl (12.0-16.0); Immature Granulocytes # (auto) 0.08 K/uL (0.01-0.20); Immature Granulocytes % (auto) 0.8 %; Mean Corpuscular Hemoglobin 29.8 pg (25.0-34.0); Mean Corpuscular Volume 90.1 fL (80.0-100.0); Platelet Count 331 K/uL (130-400); RDW Standard Deviation 43.5 fL (36.4-46.3); Red Blood Count 4.46 M/uL (4.20-5.40); White Blood Count 10.45 K/ul (4.8-10.8)
[2025-07-02 07:06] LABS: Alanine Aminotransferase 70.0 U/L (7-52); Albumin Globulin Ratio 0.9 (0.9-2); Albumin Level 3.4 gm/dl (3.4-5.0); Alkaline Phosphatase 110.0 U/L (34-104); Anion Gap 10.0 (3-11); Bilirubin,Total 0.7 mg/dl (0.2-1.0); Blood Urea Nitrogen 20.0 mg/dl (6-23); Calcium 9.0 mg/dl (8.6-10.3); Carbon Dioxide 22.0 mmol/L (21-32); Chloride 106.0 mmol/L (98-107); Cholesterol 331.0 mg/dl (0-200); Creatinine Clr Calc Pharmacy 120.2 ml/min; Globulin 3.6 gm/dl (2.5-4.0); Glucose 86.0 mg/dl (70-99(Fasting)); HDL Cholesterol 58.0 mg/dl; Potassium 3.9 mmol/L (3.5-5.1); Sodium 138.0 mmol/L (136-145); Total Protein 7.0 gm/dl (6.0-8.3); Triglycerides 231.0 mg/dl (0-150)
[2025-07-02 07:45] LABS: Hemoglobin A1C 5.4 % (4.5-5.6)
[2025-07-02] MEDS: ASPIRIN 81 MG ECTAB PO SCH (08:59)
[2025-07-02] MEDS: ATORVASTATIN 40 MG TAB PO SCH (09:41)
--- NOTE | 2025-07-02 10:44 | Neurology Consultation ---
Date of Consultation July 02, 2025 Assessment & Plan (1) Arana's palsy: This patient has a new onset right facial weakness that involves both the corner of the mouth, orbit muscles, and the forehead. It is a mild to moderate weakness and definitely asymmetric compared to the left which is normal and i nvolves the entire side of the face. The patient does have dysesthesias on her the right side of her tongue and the inside of her cheek but there is no deficits to sensation to pin and touch in these areas. Therefore there is no other neurologic deficit present. She has achy pain at the corner of the jaw under the ear where the 7th cranial nerve exits. All of this is consistent with an acute facial nerve issue (Arana's palsy). MRI of the brain was unremarkable/normal for acute changes or brainstem issues. The patient has a tiny nonspecific old white matter spot deep on the right hemisphere. This has nothing to do with current symptoms and may be very old. There is no evidence of acute stroke. Otherwise, there are no other neurologic deficits, focal findings, meningeal signs, or encephalopathy. Lyme titers were negative. Recommendations: 1. Consider Medrol Dosepak (if able, since breast-feeding) to decrease swelling/inflammation 2. There is no indication for zoster on exam, therefore Valtrex is not necessary. 3. There is no need for additional neurologic testing or treatment at this time 4. Follow-up in neurology in 1 to 2 weeks after discharge with neurology PA 5. Control blood pressure as you are doing 6. Hold on statin for now as the elevated cholesterol might have something to do with / History of Present Illness Reason for Consultation: Patient is a 35-year-old who presents to the request of Dr. Pavon for stroke versus Arana's palsy. Requesting Physician: Dr. Pavon Attending Physician: Ángela Pvaon MD History of Present Illness This patient has no history of previous head trauma, meningitis/encephalitis, or stroke. She is on 40 mg Prozac for some mood issues which is improved and stable. She has no history of migraine headaches. Patient had a vaginal delivery at 39 weeks on June 24 without complication. She has been quite fatigued with lack of sleep ever since the delivery of her ch ild but has been at home doing well with no new issues. On July 01 at approximately 1330, after finishing a protein bar, she noted dysesthesias and numbness on the right side of her tongue. This was persistent and is still present today. At approximately 1530, she noticed that she could not move the right corner of her mouth as well as the left. This also persisted and she wondered about the right forehead. There may have been some dysesthesias on the inside of the cheek on the right but the outside of the face had no numbness or tingling. There was some pressure underneath her ear at the angle of the jaw on the right of an achy nature. She had no ear pain but sounds were muffled in her right ear. She arrived to the emergency room at 1649 with a temperature of 36.8, pulse 96 and regular, respirate 16, blood pressure 151/102 and O2 saturation 95%. Blood pressure lowered into the normal range. Facial weakness on the right side was noted and telestroke felt that the exam was more consistent with an incomplete Arana's palsy. She was out of the window for TNK. CBC showed a white count of 12.8 with a normal hemoglobin and hematocrit. CHEM profile was unremarkable as was glucose. ALT was elevated at 74 and alk phos 106. hCG was negative. She was given [address] scan of the head was unremarkable CT angiography of the head and neck showed no significant vascular stenoses or anomalies. MRI of the brain without contrast showed a single old 2 mm spot in the deep white matter of the right frontal lobe. She had no other white matter hyperintensities or other abnormalities. Diffusion imaging showed no acute stroke. I reviewed these films. Today her symptoms are about the same as when she was in the ER. She is currently breast-feeding. Blood pressure is 118/75 and she is afebrile. Lyme antibody titers as well as babesiosis and anaplasmosis were normal. A repeat CBC was normal with a normal white count. Alk phos and ALT were still elevated as before. Total cholesterol was 331 and triglycerides 231. Hemoglobin A1c was 5.4. Echocardiogram is pending. Allergies Allergy/AdvReac Type Severity Reaction Status Date / Time Sulfa (Sulfonamide Allergy Severe eye drops Verified 06/23/25 09:23 Antibiotics) -> eye redness, painful, irritation Home Medications Medication Instructions Recorded Confirmed Type fluoxetine 40 mg capsule 40 mg PO DAILY #90 caps 05/27/24 07/01/25 Rx Complete 1 tab PO DAILY 07/01/25 07/01/25 History Patient History Medical History Cervical polyp History of chicken pox ADD (attention deficit disorder) Chronic sinusitis Allergic rhinitis Anxiety Surgical History H/O sinus surgery x2 Family History Grandmother (Maternal) Breast cancer Other No family history of adverse response to anesthesia Denies family history of Ovarian cancer Colorectal cancer Social History Smoking Status: Never smoker Second Hand Exposure: No; Do You Dip or Chew Tobacco: No; Hx Alcohol Use: Yes Alcohol type: beer Hx Substance Use: No Preferred Language: Yakut Communication Ability: Effective Control Analyst Required: No Beliefs That Will Affect Care: None marital status: marital status details: Jeovany Barnard (33) [phone] Current Living Situation: Spouse and Family Current Living Situation Comment: Living with and 8 y/o daughter current occupational status: employed 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 [employer] Other Information That Helps Us Care for You: No Feels Safe at Home: Yes Safety Concerns: Feels Safe At This Time Diet: regular caffeine: Yes Dental Care, Regularly: Yes Physical Activity Frequency: Does not Exercise Seatbelt Use: always Sunscreen Use: Yes Assistive Devices: None Review of Systems Constitutional: no fever, no fatigue and no weakness Eyes: no diplopia, no eye pain and no worsening vision Ear, Nose, Mouth, Throat: + ear pain; no tinnitus, no hearing loss , no dizziness, no snoring, no hoarseness and no dysphagia Respiratory: no cough and no dyspnea Cardiovascular: no chest pain, no palpitations and no lightheadedness Gastrointestinal: no abdominal pain, no nausea and no vomiting Genitourinary: no dysuria, no urinary frequency and no urinary incontinence Musculoskeletal: no back pain, no neck pain, no radicular pain, no joint pain and no myalgia Integumentary: no rash and no lesions Neurologic: + localized weakness and + numbness; no gait abnormality, no generalized weakness, no tingling, no tremor(s), no abnormal movements, no headache(s), no abnormal speech, no confusion and no memory loss Psychiatric: no depression, no irritability, no anxiety, no difficulty concentrating, no confusion and no hallucinations Endocrine: no fatigue and no flushing Hematologic / Lymphatic: no easy bleeding and no easy bruising Allergy / Immunological: no urticaria and no problem reported Exam (Neuro) Physical Exam: The patient is right-handed. The patient is awake, alert, and attentive. Speech is normal without any aphasia or dysarthria. Mentation and thought processes are intact, with full orientation and normal fund of knowledge. Mood and affect are normal and appropriate. Appearance and grooming are normal. Short and long-term memory are intact. Pupils are 4 mm bilaterally and reactive to light. Extraocular eye muscles are intact without nystagmus. Visual acuity and visual mckay seem normal grossly to confrontation. There are no deficits to sensation in the face in all 3 distributions of the fifth cranial nerve bilaterally. Pin and touch on the inside of the cheek and the tongue was normal bilaterally. (There was no actual deficits to touch and pin on the tongue). Corneal reflexes are positive bilaterally. There is a facial asymmetry at the corner of the mouth on the right. There is no significant droop but it looks flat. It moves some with voluntary smile but is asymmetric not moving nearly as well as the left side. The right eyebrow is linear/flat the left eyebrow has a curve/arch to it. She can raise/wrinkle her forehead on the right but it is weak compared to the left. Eye closure shows that she is weaker keeping her eye closed on the right than the left. Hearing seems intact grossly to voice and finger rub bilaterally. Palate moves well without asymmetry. There is normal sternocleidomastoid and trapezius strength bilaterally. Tongue is midline with good strength bilaterally. She is mildly tender to palpation at the angle of the jaw on the right where the 7th cranial nerve exits. Neck has a full range of motion without discomfort. There are no cervical bruits bilaterally. There are no cranial or ocular bruits. Heart is without murmur. There is a regular rhythm and rate. Cervical, thoracic, and lumbar spine are nontender to palpation. Gait was not tested but stance sitting up in bed is normal. With outstretched arms there is no drift. There are no resting, postural, or action tremors. There is no ataxia with finger to nose testing. There is good facility in the hands. No other abnormal involuntary movements are noted. Motor strength is 5/5 diffusely in the arms bilaterally including deltoids, biceps, triceps, brachioradialis, wrist flexors and extensors, equipment processor, and intrinsic hand muscles. Motor strength is 5/5 diffusely in the legs bilaterally including hip flexors, quadriceps, hamstrings, gastrocnemius, tibialis anterior, tibialis posterior, and Peroneii muscles bilaterally. Toe extensors are normal and there is good bulk in the extensor digitorum brevis muscles bilaterally. The limbs have good tone without rigidity or spasticity. There is no atrophy noted in the muscles. Muscle bulk is normal, there is no tenderness to palpation, no myotonia to percussion, and no fasciculations seen. Sensory examination is intact to touch and pin throughout all 4 limbs diffusely. Reflexes are 2/4 in the biceps, triceps, brachioradialis, quadriceps, and Achilles tendons bilaterally. Toes are downgoing with plantar stimulation bilaterally. Peripheral pulses are present and of normal quality distally in all 4 limbs. There is no peripheral edema noted in the limbs. Results & Data Vital Signs (Past 12 Hours) Vital Signs Temp Pulse Pulse Resp BP BP Pulse Ox 07/02/25 07:50 36.5 C 90 18 118/75 96 07/02/25 07:26 95 H 07/02/25 04:00 36.7 C 82 18 111/72 95 07/01/25 23:44 36.7 C 91 H 16 123/95 96 07/01/25 23:15 97 H 07/01/25 23:12 36.7 C 91 H 16 123/95 96 07/01/25 23:12 36.7 C 90 18 123/95 97 O2 Del Method 07/02/25 07:50 Room Air 07/02/25 07:26 07/02/25 04:00 Room Air 07/01/25 23:44 Room Air 07/01/25 23:15 07/01/25 23:12 Room Air 07/01/25 23:12 Room Air PG Care Time/CCT Total # of Minutes Spent Total Time Spent with Patient: Total time spent is greater than 50% in coordination of care (as documented) at patient's floor/unit and/or counseling patient: Coding Level of Care Code 95883 INT INP/OBS CARE MIN Diagnoses 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
[2025-07-02 12:48] VITALS: PULSE 95; RESP 16; TEMP 98.1; O2SAT 95
[2025-07-02] MEDS ORDERED: STROKE PATIENT DISCHARGE STA (13:07)
--- NOTE | 2025-07-02 13:08 | Discharge Summary ---
Discharge Summary Date of Service July 02, 2025 Principal Dx & Hospital Course #1 = Principal Diagnosis (1) Right facial numbness: (2) Facial droop: (3) Stroke-like symptoms: (4) Leukocytosis: Plan #right facial droop and numbness - Patient is a 35-year-old female with past medical history of ADD, anxiety, gestational DM, recent delivery 06/24. Patient presented due to tongue numbness and right sided facial droop that began in the afternoon 07/01 and is unchanged. 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 head CT and Brain MRI without without acute stroke. head and neck CTAs without significant stenosis. echo completed without intra-atrial shunt, normal EF. 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 Given her recent and breast-feeding status, her lipid panel was felt to be inaccurate and was not started on a statin medication. Patient was instructed to follow-up with her PCP in the upcoming months to have the lipid panel repeated, she denies any family history of cholesterol issues. Given that this was not a stroke she does not need to be continued on baby aspirin. She has a hypercoagulable panel pending #mild leukocytosisWBC 12.28, appears to be patient's baseline with recent /delivery. No infectious origin determined at time of admission. leukocytosis resolved on repeat labs Trend CBC #Anxietycontinue fluoxetine Dispo: Discharged home today Notes For Next Care Provider recheck lipid panel in the next few months Follow-up on hypercoagulable panel after discharge Medication Changes From Visit Medrol Dosepak Admission HPI Per Admitting Provider Patient is a 35-year-old female with past medical history of ADD, anxiety, gestational DM, recent delivery 06/24. Patient presented due to tongue numbness and right sided facial droop that began in the afternoon 07/01 and is unchanged. She is being admitted for stroke workup. Patient seen at bedside with her partner and baby present. She stated at 130 this afternoon she noticed that her tongue was numb and she felt like she swallowed a numbing agent. She then looked in the mirror at 330 and noticed that she had a right facial droop on the lower portion of her face which is most noticeable when she smiles. She has no changes to her right forehead. She also has noticed mild hearing loss of the right ear and her ear feels clogged similar to when she has a cold. She denies any nasal congestion, cough, chest pain, shortness of breath, slurred speech, difficulty finding words, extremity numbness or tingling, difficulty ambulating. She has had no changes in her symptoms since they began, or since loading dose of aspirin. She denies any nicotine or alcohol use. She denies any personal or family history of CVAs or clotting disorders. Her only home medication is fluoxetine which she states she has been on for a while and the dose has been unchanged. She was on insulin for gestational DM however was taken off of this to her delivery. She wishes to be full code. Discharge Exam General: NAD, VS as above Resp: normal respiratory effort, lungs clear to auscultation CV: RRR, no murmur, Abd: normal bowel sounds, non tender, soft Extremities: Moves all extremities, no edema Neuro: A&O x3, right sided facial droop with impairment of right eyebrow movement as well. No strength deficits Skin: intact, no lesions noted Discharge Plan Discharge Items Patient Disposition: Home - Self-Care Reason For Visit: STROKE WORKUP Discharge Diagnosis: [place] Palsy Condition on Discharge: Good Activity: Resume your previous activity Non-emergency contact: Primary Care Provider Call non-emergency contact if: you have any medication questions, your symptoms worsen, your pain is not controlled and your temperature is above 101 Follow-up/Referrals: Camila Leyva MD [Primary Care Provider] - 07/12/25 1:00 pm Diet: Regular Addtl Attending Provider Instructions: Myrna, You were hospitalized after having face numbness and a facial droop. normal by telestroke who did not recommend TNK and felt this was more of a Arana's palsy picture, you were seen by our neurologist who confirmed the same. You will be started on a Medrol Dosepak which is safe to be taken during . Given the new sensation behind your ear and the steroids are going to dampen your immune system you are at risk for a flare of shingles. If this happens you should be prescribed Valtrex. Your lipid testing did show that your cholesterol is quite elevated, given your recent lack of family history we will defer any cholesterol- lowering medication at this time. This should be reevaluated by your PCP in the coming months. your echocardiogram is pending, you will be notified of these results. Activity: You can do normal everyday activities as your body allows. Take rest breaks if you feel tired. Do not overexert. Stop activity if you have pain, shortness of breath or feel dizzy. Follow-up appointments: Make an appointment with your primary care physician within one week of discharge. A copy of this summary will be sent to them. Every time you see your primary care physician, or any other doctor, bring your medication list, and a list of questions. CONTACT YOUR PRIMARY CARE PROVIDER if you experience any of the following: Shortness of breath or difficulty breathing Fevers or chills Feeling tired with normal activity or experiencing dizziness or fainting Difficulty following your treatment plan, or difficulty taking medications CALL 911 OR GO TO THE EMERGENCY DEPARTMENT if you experience any of the following: Severe abdominal pain or nausea/vomiting Severe chest pain, or chest pain that radiates (moves) to your jaw or arm Sudden, severe shortness of breath or difficulty breathing Thank you for allowing us to participate in your care. Pending Studies at Discharge: Yes ( Echocardiogram) Stand-Alone Forms: My [facility] Gaming, Smoking Cessation Medications and DC Order Prescriptions: New methylprednisolone [Medrol (Wang)] 4 mg tablets,dose pack 4 mg PO DAILY Qty: 21 0RF Rx Instructions: follow-up pack instructions Continued fluoxetine 40 mg capsule 40 mg PO DAILY Qty: 90 3RF Complete 1 tab PO DAILY Discharge Orders: Discharge Order (Routine); Ordered 07/02/25 Ordered By: Cinthia Boyd/Other Patient Handouts: Arana's Palsy, ED Arana's Palsy Admission Data Admit Date/Time: 07/01/25 19:45 Attending Provider: Ángela Pavon Admit Provider: Arturo Gurrola Primary Care Provider: Camila Leyva Other Providers: Forest Malhotra; Arturo Gurrola; Scar Salmon Other Interventions: Discharge Summary Assessment (RN) Last Done: 07/02/25 13:37 Hospital Stay Data Consultations 07/01/25 18:13 ED Decision to Admit Stat 07/01/25 19:32 ED Decision to Admit Stat 07/02/25 09:54 Consult Neurology Routine Diagnostic Imagining Performed Head CT 07/01/25 17:02 Clinical History: Possible stroke. Technique: Axial computed tomography images were obtained of the brain from the vertex to the skull base without intravenous contrast. Findings: There is no sign of intracranial hemorrhage. There is normal lópez-white matter differentiation with no sign of acute or old infarction. No midline shift or other form of herniation is identified. There is no hydrocephalus. No obvious mass lesion is seen on this noncontrast examination. The visualized portions of the orbits and paranasal sinuses appear unremarkable. The mastoid air cells appear clear Impression: Unremarkable noncontrast CT of the brain Electronically signed by Silvio Saab 07-01-2025 5:35 PM Head CTA 07/01/25 17:02 Clinical history: Possible stroke Technique: Axial computed tomography images were obtained of the brain after the administration of intravenous contrast according to the CT angiogram protocol Findings: No definite stenosis or aneurysm is seen of the anterior, middle, or posterior cerebral artery circulations. The visualized vertebral arteries and the basilar artery appear unremarkable Impression: No definite stenosis or aneurysm of the intracranial arteries Electronically signed by Silvio Saab 07-01-2025 5:36 PM Neck CTA 07/01/25 17:02 Clinical history: Possible stroke Technique: Axial computed tomography images were obtained of the neck after the administration of intravenous contrast according to the CT angiogram protocol Findings: No stenosis is seen of the common carotid arteries bilaterally. The carotid bulbs appear normal. The remainder of the internal carotid arteries appear patent bilaterally. No stenosis of the external carotid arteries is seen The vertebral arteries are patent bilaterally with no significant stenosis seen. The visualized thoracic aorta appears unremarkable Impression: No definite stenosis of the neck arteries Electronically signed by Silvio Saab 07-01-2025 5:37 PM Brain MRI 07/01/25 19:43 Exam(s): MRI HEAD Without Contrast EXAM: MR Head Without Intravenous Contrast CLINICAL HISTORY: Reason for exam: stroke workup, right sided facial droop/numbness. STROKE: Facial Droop: RIGHT Stroke Notes: numbness of tongue at 1330 then rt sided facial droop at 1530 today, no hx stroke TECHNIQUE: Magnetic resonance images of the head/brain without intravenous contrast in multiple planes. COMPARISON: No relevant prior studies available. FINDINGS: Brain: There is a single 2 mm T2 hyperintense focus in the right frontal lobe deep white matter. The brain parenchymal signal is otherwise normal. No areas of diffusion restriction are seen to indicate acute stroke. No mass lesion or cerebral hemorrhage is identified. Ventricles: Unremarkable. No ventriculomegaly. Bones/joints: Unremarkable. No acute fracture. Sinuses: There is a 1.3 cm polyp or mucous retention cysts in the left maxillary sinus. The remaining sinuses are unremarkable. No acute sinusitis. Mastoid air cells: Unremarkable as visualized. No mastoid effusion. Orbits: Unremarkable as visualized. IMPRESSION: There is a single 2 mm T2 hyperintense focus in the right frontal lobe deep white matter which is nonspecific. The brain parenchymal signal is otherwise normal. No areas of diffusion restriction are seen to indicate acute stroke. No mass lesion or hemorrhage. Electronically signed by: Sam Cordova MD 07/01/25 23:07 PM Pending Results Patient Have Any Pending Studies at Discharge: Yes ( Echocardiogram) Discharge Instructions Given to Patient (Per Discharging Provider) Myrna, You were hospitalized after having face numbness and a facial droop. normal by telestroke who did not recommend TNK and felt this was more of a Arana's palsy picture, you were seen by our neurologist who confirmed the same. You will be started on a Medrol Dosepak which is safe to be taken during . Given the new sensation behind your ear and the steroids are going to dampen your immune system you are at risk for a flare of shingles. If this happens you should be prescribed Valtrex. Your lipid testing did show that your cholesterol is quite elevated, given your recent lack of family history we will defer any cholesterol- lowering medication at this time. This should be reevaluated by your PCP in the coming months. your echocardiogram is pending, you will be notified of these results. Activity: You can do normal everyday activities as your body allows. Take rest breaks if you feel tired. Do not overexert. Stop activity if you have pain, shortness of breath or feel dizzy. Follow-up appointments: Make an appointment with your primary care physician within one week of discharge. A copy of this summary will be sent to them. Every time you see your primary care physician, or any other doctor, bring your medication list, and a list of questions. CONTACT YOUR PRIMARY CARE PROVIDER if you experience any of the following: Shortness of breath or difficulty breathing Fevers or chills Feeling tired with normal activity or experiencing dizziness or fainting Difficulty following your treatment plan, or difficulty taking medications CALL 911 OR GO TO THE EMERGENCY DEPARTMENT if you experience any of the following: Severe abdominal pain or nausea/vomiting Severe chest pain, or chest pain that radiates (moves) to your jaw or arm Sudden, severe shortness of breath or difficulty breathing Thank you for allowing us to participate in your care. Supervising Physician Co-Signing Physician Notes DANIELA Supervision Note: I did not personally see or examine the patient today, but I verified all barrow points of DANIELA Stiles's assessment and plan with the following exceptions/additions: I discussed the patient's care at length with the neurologist and reviewed the chart. Consistent with Arana's palsy Stable for discharge home on Medrol Dosepak which is safe in breast-feeding Total Time Total Time Spent Total Time Spent (In Minutes): Time spent day of discharge 40 minutes including direct patient care, medication reconciliation, documentation, review of labs and images, and coordination of care. case discussed with neurology Coding Level of Care Code 56579 INP/OBS DISCH >30 MIN Diagnoses Right facial numbness R20.0 Facial droop R29.810 Stroke-like symptoms R29.90 Leukocytosis D72.829 Leukocytosis type: unspecified
[2025-07-02 13:38] VITALS: BP 123/95
--- NOTE | 2025-07-02 13:48 | XCELERA ---
[id number]
--- NOTE | 2025-07-02 18:59 | Electrocardiogram Report ---
Test Reason : Blood Pressure : */* mmHG Vent. Rate : 105 BPM Atrial Rate : 105 BPM P-R Int : 132 ms QRS Dur : 78 ms QT Int : 346 ms P-R-T Axes : 41 -6 25 degrees QTcB Int : 457 ms Sinus tachycardia Cannot rule out Anterior infarct , age undetermined Abnormal ECG No previous ECGs available Confirmed by Gordon Ovalle ([id number]) on 07/02/2025 6:59:47 PM Referred By: REFERRED SELF Confirmed By: Gordon Ovalle
[2025-07-03] MEDS ORDERED: ROSUVASTATIN CALCIUM 20 MG TAB PO SCH (09:00)
== END 2025-07-02 14:18 | disposition home or self-care (01) | DRG 74 ==
LOC: ED 16:47 → SUATTDRO 19:45 → 2W 19:45
DX: D72.829 Elevated white blood cell count, unspecified; R20.0 Anesthesia of skin; F41.9 Anxiety disorder, unspecified; Z88.2 Allergy status to sulfonamides; R29.90 Unspecified symptoms and signs involving the nervous system; G51.0 Bell's palsy; Z79.899 Other long term (current) drug therapy